=== PATIENT | male | born 1970 | race African-American/Black ===

== ENCOUNTER 2016-09-07 10:53 | Emergency (ER) | payer BC ==
--- NOTE | 2016-09-07 11:22 | ER Document Report ---
ED Medical Screen (RME) - General Chief Complaint: Cough Stated Complaint: COUGH Mode of Arrival: Ambulatory Information source: Patient Notes: Patient presents to the emergency department with complaints of flulike symptoms for the past 2 days. Patient complains of fever body aches. Denies vomiting diarrhea. Patient looks nontoxic - Related Data Allergies/Adverse Reactions: No Known Allergies Allergy (Unverified 09/07/16 11:21) Physical Exam - Vital signs Vitals: Temp Pulse Resp BP Pulse Ox 98.3 F 69 14 142/88 H 96 09/07/16 10:56 09/07/16 10:56 09/07/16 10:56 09/07/16 10:56 09/07/16 10:56 Course - Vital Signs Vital signs: Temp Pulse Resp BP Pulse Ox 98.3 F 69 14 142/88 H 96 09/07/16 10:56 09/07/16 10:56 09/07/16 10:56 09/07/16 10:56 09/07/16 10:56
--- NOTE | 2016-09-07 12:42 | ER Document Report ---
[id number] Mode of Arrival: Ambulatory Information source: Patient Notes: 46-year-old smoker who was exposed to whooping cough presents with a dry cough of one-week duration. Patient notes he begins to have fevers and chills throughout the day but feels well when he wakes up. Patient denies any respiratory distress at this time - HPI Onset: Last week Onset/Duration: Persistent Quality of pain: No pain Severity: Mild Pain Level: Denies Associated symptoms: Nonproductive cough, Fever Exacerbated by: Denies Relieved by: Denies Similar symptoms previously: No Recently seen / treated by doctor: No - Related Data Allergies/Adverse Reactions: No Known Allergies Allergy (Unverified 09/07/16 11:21) Past Medical History - General Information source: Patient - Social History Smoking Status: Current Every Day Smoker Cigarette use (# per day): Yes Chew tobacco use (# tins/day): No Smoking Education Provided: Yes - Patient counselled regarding cessation for 4 minutes Frequency of alcohol use: None Drug Abuse: None Family History: Reviewed & Not Pertinent Patient has suicidal ideation: No Patient has homicidal ideation: No Renal/ Medical History: Denies: Hx Peritoneal Dialysis Review of Systems - Review of Systems Notes: REVIEW OF SYSTEMS: CONSTITUTIONAL : Admits to fever EENT: Denies eye, ear, throat, or mouth pain or symptoms. Denies nasal or sinus congestion or discharge. Denies throat, tongue, or mouth swelling or difficulty swallowing. CARDIOVASCULAR: Denies chest pain. Denies palpitations or racing or irregular heart beat. Denies ankle edema. RESPIRATORY: Admits to nonproductive cough. GASTROINTESTINAL: Denies abdominal pain or distention. Denies nausea, vomiting , or diarrhea. Denies blood in vomitus, stools, or per rectum. Denies black, tarry stools. Denies constipation. GENITOURINARY: Denies difficulty urinating, painful urination, burning, frequency, blood in urine, or discharge. MUSCULOSKELETAL: Denies back or neck pain or stiffness. Denies joint pain or swelling. SKIN: Denies rash, lesions or sores. HEMATOLOGIC : Denies easy bruising or bleeding. LYMPHATIC: Denies swollen, enlarged glands. NEUROLOGICAL: Denies confusion or altered mental status. Denies passing out or loss of consciousness. Denies dizziness or lightheadedness. Denies headache. Denies weakness or paralysis or loss of use of either side. Denies problems with gait or speech. Denies sensory loss, numbness, or tingling. Denies seizures. PSYCHIATRIC: Denies anxiety or stress. Denies depression, suicidal ideation, or homicidal ideation. ALL OTHER SYSTEMS REVIEWED AND NEGATIVE. Dictation was performed using [employer] voice recognition software PHYSICAL EXAMINATION: GENERAL: Well-appearing, well-nourished and in no acute distress. HEAD: Atraumatic, normocephalic. EYES: Pupils equal round and reactive to light, extraocular movements intact, sclera anicteric, conjunctiva are normal. ENT: Nares patent, oropharynx clear without exudates. Moist mucous membranes. NECK: Normal range of motion, supple without lymphadenopathy LUNGS: Breath sounds clear to auscultation bilaterally and equal. No wheezes rales or rhonchi. HEART: Regular rate and rhythm without murmurs ABDOMEN: Soft, nontender, nondistended abdomen. No guarding, no rebound. No masses appreciated. Musculoskeletal: Normal range of motion, no pitting or edema. No cyanosis. NEUROLOGICAL: Cranial nerves grossly intact. Normal speech, normal gait. Normal sensory, motor exams PSYCH: Normal mood, normal affect. SKIN: Warm, Dry, normal turgor, no rashes or lesions noted. Physical Exam - Vital signs Vitals: Temp Pulse Resp BP Pulse Ox 98.3 F 69 14 142/88 H 96 09/07/16 10:56 09/07/16 10:56 09/07/16 10:56 09/07/16 10:56 09/07/16 10:56 Course - Re-evaluation Re-evalutation: 09/07/16 16:13 Physical examination notes no respiratory distress, patient looks well. Influenza was negative. Given that the patient exposure to pertussis I will start him on azithromycin and otherwise he looks well and is in no distress Very strict return precautions have been provided to the patient After performing a Medical Screening Examination, I estimate there is LOW risk for ACUTE CORONARY SYNDROME, RESPIRATORY FAILURE, SEPSIS OR MENINGITIS, thus I consider the discharge disposition reasonable. The patient and I have discussed the diagnosis and risks, and we agree with discharging home with close follow- up. We also discussed returning to the Emergency Department immediately if new or worsening symptoms occur. We have discussed the symptoms which are most concerning (e.g., changing or worsening pain, trouble swallowing or breathing, neck stiffness, fever) that necessitate immediate return. - Vital Signs Vital signs: Temp Pulse Resp BP Pulse Ox 98.2 F 65 14 136/88 H 96 09/07/16 13:09 09/07/16 13:09 09/07/16 10:56 09/07/16 13:09 09/07/16 13:09 Discharge - Discharge Clinical Impression: bordatella exposure, Cough Condition: Stable Disposition: HOME, SELF-CARE Instructions: Pneumonia ([facility]) Additional Instructions: Follow up with your physician tomorrow for further care or return to the ED IMMEDIATELY if symptoms worsen or new concerns occur Prescriptions: Azithromycin 500 mg PO DAILY 7 Days Forms: Return to Work
[2016-09-07 13:16] VITALS: BP 136/88
== END 2016-09-07 13:20 | disposition home or self-care (01) ==
LOC: ER 10:53
DX: R05 Cough (principal); R50.9 Fever, unspecified; F17.210 Nicotine dependence, cigarettes, uncomplicated; Z20.89 Contact with and (suspected) exposure to other communicable diseases
CPT/HCPCS: 87804; 99283